=== PATIENT | male | born 1960 | race Caucasian/White ===

== ENCOUNTER 2021-09-03 12:15 | Inpatient (IN) ==
[2021-09-03] MEDS ORDERED: Ondansetron 4 MG/2 ML VIAL IVP ONE (13:21)
[2021-09-03] MEDS ORDERED: Vancomycin 2,000 MG/520 ML IV.SOLN IVPB ONE (13:21)
[2021-09-03 13:24] LABS: Mean Corpuscular Volume 93.7 fL (83.0-100.0)
[2021-09-03 13:25] LABS: Hematocrit 47.6 % (37.5-50.1); Hemoglobin 15.8 g/dL (12.9-16.9); Immature Platelets 1.7 % (1.1-6.1); Mean Corpuscular HGB Conc 33.2 g/dL (31.6-35.5); Mean Corpuscular Hemoglobin 31.1 pg (28.0-33.3); Red Blood Count 5.08 M/mcL (4.19-5.50); Red Cell Distribution Width 12.8 % (11.5-14.5)
[2021-09-03] MEDS ORDERED: Piperacillin/Tazobactam 3.375 GM in 0.9 % Sodium Chloride Mini Bag 100 ML IVPB ONE (13:28)
[2021-09-03 13:38] LABS: BUN/Creatinine Ratio 15 (6-26); Blood Urea Nitrogen 14 mg/dL (8-23); Calcium 9.2 mg/dL (8.6-10.3); Carbon Dioxide 28 mEq/L (23-29); Chloride 104 mEq/L (98-107); Glucose 96 mg/dL (70-105); Osmolality,Calculated 286 (280-300); Sodium 138 mEq/L (136-145); eGFR For African Americans > 60 (> 60); eGFR For Non-African Americans > 60 (> 60)
[2021-09-03] MEDS ORDERED: Naloxone 0.4 MG/ML INJ IVP PRN (14:15)
[2021-09-03] MEDS ORDERED: *HR* HYDROcodone/Acet 5/325 mg TABLET PO PRN (14:15)
[2021-09-03] MEDS ORDERED: Acetaminophen 325 MG TABLET PO PRN (14:15)
[2021-09-03] MEDS ORDERED: Ondansetron ODT 4 MG TAB.RAPDIS SL PRN (14:15)
[2021-09-03] MEDS ORDERED: Iopamidol - 370 500 ML MLS IVP ONE (14:35)
[2021-09-03] MEDS ORDERED: Budesonide/Formoterol 80/4.5 1 PUFF INH IH PRN (17:25)
[2021-09-03] MEDS ORDERED: Nitroglycerin 0.4 MG TAB.SUBL SL PRN (17:25)
[2021-09-03] MEDS: Piperacillin/Tazobactam 3.375 GM in 0.9 % Sodium Chloride Mini Bag 100 ML IVPB SCH (21:34)
[2021-09-04] MEDS ORDERED: Vancomycin 2,000 MG/520 ML IV.SOLN IVPB SCH (02:00)
[2021-09-04] MEDS: *HR* Enoxaparin 40 MG/0.4 ML SYRINGE SQ SCH (05:35)
[2021-09-04] MEDS: Piperacillin/Tazobactam 3.375 GM in 0.9 % Sodium Chloride Mini Bag 100 ML IVPB SCH ×3 (05:36→23:28)
[2021-09-04 06:13] LABS: INR 1.2; Prothrombin Time 13.1 Seconds (9.4-12.1)
[2021-09-04 06:15] LABS: Activated Partial Thrombo Time 28.3 Seconds (26.0-36.0)
[2021-09-04 06:25] LABS: BUN/Creatinine Ratio 12 (6-26); Blood Urea Nitrogen 15 mg/dL (8-23); Calcium 8.5 mg/dL (8.6-10.3); Carbon Dioxide 28 mEq/L (23-29); Chloride 103 mEq/L (98-107); Glucose 119 mg/dL (70-105); Osmolality,Calculated 286 (280-300); Phosphorous 3.3 mg/dL (2.7-4.5); Potassium 4.1 mEq/L (3.5-5.1); Sodium 137 mEq/L (136-145); eGFR For African Americans > 60 (> 60); eGFR For Non-African Americans 58 (> 60)
[2021-09-04 08:47] LABS: C-Reactive Protein 75 mg/L (Less than 10)
[2021-09-04] MEDS: Cholecalciferol (D-3) 1,000 UNIT (25MCG) TABLET PO SCH (08:57)
[2021-09-04] MEDS: Aspirin Enteric Coated 81 MG Tablet PO SCH (08:58)
[2021-09-04] MEDS ORDERED: Vancomycin 1,500 MG/265 ML IV.SOLN IVPB SCH (14:00)
[2021-09-05 03:07] LABS: Blood Urea Nitrogen 13 mg/dL (8-23); Calcium 8.7 mg/dL (8.6-10.3); Carbon Dioxide 25 mEq/L (23-29); Chloride 105 mEq/L (98-107); Glucose 120 mg/dL (70-105); Magnesium 2.2 mg/dL (1.6-2.6); Osmolality,Calculated 283 (280-300); Phosphorous 2.7 mg/dL (2.7-4.5); Potassium 4.1 mEq/L (3.5-5.1); Sodium 136 mEq/L (136-145)
[2021-09-05] MEDS ORDERED: Vancomycin 2,000 MG/520 ML IV.SOLN IVPB SCH ×2 (04:00→16:00)
[2021-09-05] MEDS: *HR* Enoxaparin 40 MG/0.4 ML SYRINGE SQ SCH (04:01)
[2021-09-05 04:22] LABS: BUN/Creatinine Ratio 11 (6-26); eGFR For African Americans > 60 (> 60); eGFR For Non-African Americans > 60 (> 60)
[2021-09-05] MEDS: Piperacillin/Tazobactam 3.375 GM in 0.9 % Sodium Chloride Mini Bag 100 ML IVPB SCH ×2 (06:09→14:21)
[2021-09-05] MEDS: Aspirin Enteric Coated 81 MG Tablet PO SCH (07:57)
[2021-09-05] MEDS: Cholecalciferol (D-3) 1,000 UNIT (25MCG) TABLET PO SCH (07:57)
[2021-09-05] MEDS ORDERED: lisinopriL 5 MG TABLET PO SCH (09:00)
[2021-09-05] MEDS ORDERED: *HR* Propofol 200 MG/20 ML VIAL IVP ONE (15:01)
[2021-09-05] MEDS ORDERED: *HR* FentaNYL (PF) 100 MCG/2 ML VIAL ONE (15:01)
[2021-09-05] MEDS ORDERED: Acetaminophen 325 MG TABLET PO PRN ×2 (15:34→20:33)
[2021-09-05] MEDS ORDERED: Naloxone 0.4 MG/ML INJ IVP PRN ×2 (15:34→20:33)
[2021-09-05] MEDS ORDERED: Budesonide/Formoterol 80/4.5 1 PUFF INH IH PRN ×2 (15:34→20:33)
[2021-09-05] MEDS ORDERED: *HR* HYDROcodone/Acet 5/325 mg TABLET PO PRN ×2 (15:34→20:33)
[2021-09-05] MEDS ORDERED: Ondansetron ODT 4 MG TAB.RAPDIS SL PRN ×2 (15:34→20:33)
[2021-09-05] MEDS ORDERED: Nitroglycerin 0.4 MG TAB.SUBL SL PRN ×2 (15:34→20:33)
[2021-09-05] MEDS ORDERED: *HR* Midazolam HCl 2 MG/2 ML VIAL ONE (15:37)
[2021-09-05] MEDS ORDERED: Lidocaine -MPF 2% 5 ML VIAL ONE (15:37)
[2021-09-05] MEDS ORDERED: Piperacillin/Tazobactam 3.375 GM in 0.9 % Sodium Chloride Mini Bag 100 ML IVPB SCH (16:00)
[2021-09-05] MEDS ORDERED: Ondansetron 4 MG/2 ML VIAL ONE (16:10)
[2021-09-06] MEDS: Piperacillin/Tazobactam 3.375 GM in 0.9 % Sodium Chloride Mini Bag 100 ML IVPB SCH ×4 (01:08→23:26)
[2021-09-06 01:40] LABS: Basophils % 0.7 %; Eosinophils # 0.2 K/mcL (0.0-0.6); Eosinophils % 4.8 %; Hematocrit 43.5 % (37.5-50.1); Hemoglobin 14.3 g/dL (12.9-16.9); Immature Granulocytes % 0.2 % (0-4); Lymphocytes # 1.3 K/mcL (0.6-4.6); Mean Corpuscular HGB Conc 32.9 g/dL (31.6-35.5); Mean Corpuscular Hemoglobin 30.5 pg (28.0-33.3); Mean Corpuscular Volume 92.8 fL (83.0-100.0); Mean Platelet Volume 8.6 fL (9.4-12.4); Monocytes # 0.4 K/mcL (0.0-1.3); Monocytes % 8.5 %; Neutrophils # 2.7 K/mcL (1.6-8.9); Platelet Count 132 K/mcL (140-400); Red Blood Count 4.69 M/mcL (4.19-5.50); Red Cell Distribution Width 12.9 % (11.5-14.5); Segmented Neutrophils % 57.8 %; White Blood Count 4.6 K/mcL (4.3-11.1)
[2021-09-06 02:14] LABS: BUN/Creatinine Ratio 11 (6-26); Blood Urea Nitrogen 10 mg/dL (8-23); Calcium 8.8 mg/dL (8.6-10.3); Carbon Dioxide 24 mEq/L (23-29); Chloride 106 mEq/L (98-107); Glucose 153 mg/dL (70-105); Magnesium 2.1 mg/dL (1.6-2.6); Osmolality,Calculated 286 (280-300); Phosphorous 3.5 mg/dL (2.7-4.5); Potassium 4.3 mEq/L (3.5-5.1); Sodium 137 mEq/L (136-145); eGFR For African Americans > 60 (> 60); eGFR For Non-African Americans > 60 (> 60)
[2021-09-06] MEDS: Vancomycin 2,000 MG/520 ML IV.SOLN IVPB SCH ×2 (05:15→17:18)
[2021-09-06] MEDS: *HR* Enoxaparin 40 MG/0.4 ML SYRINGE SQ SCH (05:23)
[2021-09-06] MEDS ORDERED: *HR* Enoxaparin 40 MG/0.4 ML SYRINGE SQ SCH (06:00)
[2021-09-06] MEDS: Cholecalciferol (D-3) 1,000 UNIT (25MCG) TABLET PO SCH (08:01)
[2021-09-06] MEDS: Aspirin Enteric Coated 81 MG Tablet PO SCH (08:01)
[2021-09-06] MEDS ORDERED: Cholecalciferol (D-3) 1,000 UNIT (25MCG) TABLET PO SCH (09:00)
[2021-09-06] MEDS ORDERED: lisinopriL 5 MG TABLET PO SCH ×2 (09:00)
[2021-09-06] MEDS ORDERED: Aspirin Enteric Coated 81 MG Tablet PO SCH (09:00)
[2021-09-06 23:31] VITALS: BP 126/69; PULSE 85; TEMP 98.8; O2SAT 93
[2021-09-07] MEDS: Vancomycin 2,000 MG/520 ML IV.SOLN IVPB SCH (04:04)
[2021-09-07] MEDS: *HR* Enoxaparin 40 MG/0.4 ML SYRINGE SQ SCH (04:05)
[2021-09-07 04:33] LABS: Basophils % 0.7 %; Eosinophils # 0.2 K/mcL (0.0-0.6); Eosinophils % 4.8 %; Hematocrit 40.5 % (37.5-50.1); Hemoglobin 13.8 g/dL (12.9-16.9); Immature Granulocytes % 0.4 % (0-4); Lymphocytes # 1.5 K/mcL (0.6-4.6); Lymphocytes % 32.6 %; Mean Corpuscular HGB Conc 34.1 g/dL (31.6-35.5); Mean Platelet Volume 8.7 fL (9.4-12.4); Monocytes # 0.5 K/mcL (0.0-1.3); Monocytes % 10.4 %; Neutrophils # 2.3 K/mcL (1.6-8.9); Platelet Count 135 K/mcL (140-400); Red Blood Count 4.45 M/mcL (4.19-5.50); Red Cell Distribution Width 12.7 % (11.5-14.5); Segmented Neutrophils % 51.1 %; White Blood Count 4.5 K/mcL (4.3-11.1)
[2021-09-07 04:56] LABS: BUN/Creatinine Ratio 9 (6-26); Blood Urea Nitrogen 9 mg/dL (8-23); Calcium 8.8 mg/dL (8.6-10.3); Carbon Dioxide 25 mEq/L (23-29); Chloride 106 mEq/L (98-107); Glucose 133 mg/dL (70-105); Osmolality,Calculated 289 (280-300); Potassium 3.6 mEq/L (3.5-5.1); Sodium 139 mEq/L (136-145); eGFR For African Americans > 60 (> 60); eGFR For Non-African Americans > 60 (> 60)
[2021-09-07 06:42] LABS: Estimated Average Glucose 123 mg/dl; Hemoglobin A1C 5.9 %
[2021-09-07] MEDS ORDERED: Vitamin B Complex/Vit C/Vit E 1 EACH TABLET PO SCH (09:00)
[2021-09-07] MEDS ORDERED: cefTRIAXone 2,000 MG in 0.9 % Sodium Chloride Mini Bag 100 ML IVPB SCH (09:00)
[2021-09-07] MEDS: Aspirin Enteric Coated 81 MG Tablet PO SCH (09:55)
[2021-09-07] MEDS: Cholecalciferol (D-3) 1,000 UNIT (25MCG) TABLET PO SCH (09:55)
[2021-09-07] MEDS ORDERED: Cefepime HCl 2,000 MG in 0.9 % Sodium Chloride Mini Bag 100 ML IVPB SCH (18:00)
== END 2021-09-07 18:30 | disposition home health service (06) | DRG 854 ==
LOC: EMEROOARM 12:15 → 4WAOSI 12:15 → SUATTDRO 14:36 → 4WAOSI 15:24 → SUATTDRO 09-04 12:25
PROVIDERS: ADMIT Internal Medicine; ATTEND Pharmacist